=== PATIENT | male | born 1965 | race Caucasian/White ===

== ENCOUNTER → 2023-08-23 | Outpatient (CLI) | payer OTHER, SELFPAY ==
--- NOTE | 2023-08-23 12:14 | VDLE_ITS ---
Reason For Study: Right knee sprain RIGHT LEFT GSV is normal. CFV is compressible, spontaneous, phasic, CFV is compressible, spontaneous, phasic, competent, and demonstrates normal competent and demonstrates normal augmentation. augmentation. FV is compressible, spontaneous, phasic, competent and demonstrates normal augmentation. POP V is compressible, spontaneous, phasic, competent and demonstrates normal augmentation. T/P Trunk is compressible. PTV is compressible. RT PerV is compressible. Nonvascular structure noted in the right knee to calf muscle. Procedure This is a venous duplex using B-mode, color flow and spectral Doppler. Exam performed in department. Technically difficult to visualize calf veins. A preliminary report was called and/or faxed to Dr. Ruvalcaba. VL/Venous Duplex US, Unilateral Interpretation Summary Deep veins of the right lower extremity are patent and compressible segmentally . There is no evidence of right lower extremity deep vein thrombosis. The right great sapheno us vein appears patent and compressible segmentally. Nonvascular structure noted in the right knee to calf muscle. Ordering Physician: Beck Ruvalcaba Referring Physician: Ha Jacobs Performed By: Carrie Oliver RVT and Student
== END | disposition home or self-care (01) ==
LOC: CVS 12:11
PROVIDERS: PCP Family Medicine; Referring Provider Family Medicine; Visit Provider Family Medicine
DX: S83.91XA Sprain of unspecified site of right knee, initial encounter (principal); X58.XXXA Exposure to other specified factors, initial encounter
CPT/HCPCS: 93971

== ENCOUNTER 2023-09-05 17:22 | Emergency (ER) | payer OTHER, SELFPAY ==
[2023-09-05 17:24] VITALS: BP 129/81; PULSE 89; RESP 18; TEMP 36.2; O2SAT 97; BMI 41.1
--- NOTE | 2023-09-05 18:53 | US_ITS ---
STUDY: VENOUS DOPPLER ULTRASOUND - RIGHT LOWER EXTREMITY REASON FOR EXAM: Male, 58 years old. RT CALF SWELLING TECHNIQUE: Ultrasound evaluation of the deep vein system to include salazar-scale imaging and compression was performed. Salazar-scale imaging and Doppler sonographic evaluation, including duplex spectral analysis and qualitative color flow sonography, was performed. COMPARISON: 08/23/2023 FINDINGS: Common Femoral Vein: Normal compression, spontaneity and augmentation. Normal color Doppler. Common Femoral Vein/Greater Saphenous Junction: Normal compression, spontaneity and augmentation. Normal color Doppler. Deep Femoral Vein: Normal compression, spontaneity and augmentation. Normal color Doppler. Femoral Proximal: Normal compression, spontaneity and augmentation. Normal color Doppler. Femoral Middle: Normal compression, spontaneity and augmentation. Normal color Doppler. Femoral Distal: Normal compression, spontaneity and augmentation. Normal color Doppler. Popliteal Vein: Normal compression, spontaneity and augmentation. Normal color Doppler. Posterior Tibial Vein: Normal compression, spontaneity and augmentation. Normal color Doppler. Peroneal Vein: Normal compression, spontaneity and augmentation. Normal color Doppler. US/Venous Duplex Imag/Limited/Uni IMPRESSION: Normal venous Doppler ultrasound of the lower extremity. Electronically Signed: Chau Giles MD at 19:43 EDT ,
--- NOTE | 2023-09-05 19:24 | EDS_ITS ---
HPI History of Present Illness Chief Complaint: Edema Narrative Narrative: 58-year-old male presenting with right lower extremity pain. He states he had a fall recently. He had pain in the right leg since then. He states he had an x- ray and MRI of the lower leg which shows a meniscal tear. Patient states she is ambulatory. Denies new trauma. He states has been having the swelling of the right lower leg. Denies chest pain or shortness of breath. He had a duplex of the right lower extremity on the second of this month and it was negative for DVT. Patient followed up with [email or web address] and was told that he believes they missed something and sent him back to the ER for DVT study although he is already had an MRI which is diagnostic of meniscal tear. Patient is not anticoagulated. PFSH PFSH Allergy/AdvReac Type Severity Reaction Status Date / Time codeine Allergy Swelling Verified 09/05/23 17:24 Social History Smoking Status: Never smoker ROS ROS ED Constitutional Constitutional ED: Denies chills, fever(s) or sweats Eyes Eyes: Denies blurry vision or change in vision ENT ENT ED: Denies ear pain or sore throat Cardiovascular Cardiovascular: Denies chest pain, palpitations or racing heartbeat Respiratory/Chest Respiratory/Chest: Denies cough, dyspnea or sputum Gastrointestinal Gastrointestinal: Denies abdominal pain, constipation, diarrhea, nausea or vomiting Genitourinary Genitourinary ED: Denies dysuria, hematuria or urinary frequency Musculoskeletal Musculoskeletal: Reports other Details: Right leg pain and swelling ; Denies arthralgias, myalgias or neck pain Integumentary Denies abscess, Abrasions or rash Neurologic Neurologic: Denies headache(s), paresthesias or weakness Psychiatric Psychiatric: Denies anxiety, depression, suicidal ideation or suicidal thoughts Endocrine Endocrinology: Denies polydipsia or polyuria EXAM Physical Exam Const Vital Signs: 09/05/23 17:24 09/05/23 19:43 Temperature 97.1 F L 98.4 F Temperature Source Temporal Pulse Rate 89 71 Respiratory Rate 18 16 Blood Pressure 129/81 H 129/75 H Blood Pressure Mean 97 93 Pulse Ox 97 96 Oxygen Delivery Method Room Air Positive well nourished HEENT normocephalic and atraumatic Chest Wall inspection of chest normal Cardio regular rate and regular rhythm Extremity Extremity Narrative: Diffuse nonpitting edema of the right lower extremity, calf. No redness or warmth. Compartments are soft. No cords palpated Neuro oriented x3 and CN's II-XII intact bilaterally Sensorium / Orientation: alert Motor Exam: strength 5/5 throughout MDM MDM MDM Narrative Medical decision making narrative: Patient presenting with right lower extremity swelling. He sent back for repeat DVT study although he had 1 on the second which was negative. Patient is already had x-rays and an MRI of the leg shows a meniscal tear. Patient's doctor felt like they may have missed something given no signs of swelling. Without any patient will have duplex of the lower extremity accident. Duplex of the right lower extremity shows no DVT. Patient counseled on findings. Recommended compression, ice, elevation. Impression: 1. Unilateral leg Radiography Diagnostic Testing: Clinical Impression(s) from Imaging Studies Venous Duplex 09/05/23 18:53 IMPRESSION: Normal venous Doppler ultrasound of the lower extremity. Electronically Signed: Chau Giles MD at 19:43 EDT , Discharge Plan Triage Chief Complaint: Edema ED Provider: Richard Aguirre Dx/Rx/DC Orders Instructions: ED Peripheral Edema, Unilateral Primary Care Provider: Ha Jacobs Referrals: Ha Jacobs, DO [Primary Care Provider] - Disposition Disposition: Home, Self Care Discharge Date/Time: 09/05/23 19:44
[2023-09-05 19:43] VITALS: BP 129/75; PULSE 71; RESP 16; TEMP 36.9; O2SAT 96
== END 2023-09-05 19:44 | disposition home or self-care (01) ==
PROVIDERS: Emergency Provider Student in an Organized Health Care Education/Training Program; PCP Family Medicine; Visit Provider Student in an Organized Health Care Education/Training Program
DX: R60.0 Localized edema (principal); S83.201A Bucket-handle tear of unspecified meniscus, current injury, left knee, initial encounter; W19.XXXA Unspecified fall, initial encounter
CPT/HCPCS: 93971; 99282